=== PATIENT | female | born 2000 | race Hispanic/Latino ===

== ENCOUNTER 2022-05-20 03:06 | Observation (INO) | payer BC ==
[2022-05-20] MEDS ORDERED: Morphine 4 MG/ML VIAL ONE (03:26)
[2022-05-20 03:38] LABS: #Monocytes 0.4 10x3/uL (0.0-1.1); #Neutrophils 11.8 10x3/uL (1.5-8.4); %Basophils 0.2 % (0.0-2.0); %Eosinophils 0.2 % (0.0-6.0); %Monocytes 2.9 % (0.0-10.0); %Neutrophils 93.1 % (40.0-75.0); Hemoglobin 10.3 g/dL (12.0-15.5); Mean Corpuscular HGB CONC 33.6 g/dL (32.0-36.0); Mean Corpuscular Hemoglobin 29.2 pg (27.0-33.0); Mean Platelet Volume 10.4 fl (7.4-10.4); Platelet Count 193 10x3/uL (150-450); RBC Distribution Width 14.1 % (11.5-14.5); Red Blood Cell (RBC) Count 3.53 10x6/uL (3.90-5.03); White Blood Cell (WBC) Count 12.6 10x3/uL (3.5-10.5)
[2022-05-20 03:53] LABS: ALT (SGPT) 14 U/L (8-55); AST (SGOT) 16 U/L (5-34); Albumin 3.8 g/dL (3.5-5.0); Alkaline Phosphatase 55 U/L (40-100); Anion Gap 12 mmol/L (10-20); BUN (Urea Nitrogen) 13 mg/dL (7.0-18.7); Bilirubin, Total 3.8 mg/dL (0.2-1.2); Calc. Creatinine Clearance 0 mL/min (70-130); Carbon Dioxide 24 mmol/L (22-29); Chloride 106 mmol/L (98-107); Estimated GFR 127; Globulin 3.2 g/dL (2.4-3.5); Glucose 123 mg/dL (70-105); Magnesium 1.6 mg/dL (1.7-2.2); Potassium 3.7 mmol/L (3.5-5.1); Sodium 138 mmol/L (136-145)
[2022-05-20 05:52] LABS: Hemoglobin 10.3 g/dL (12.0-15.5)
[2022-05-20] MEDS ORDERED: Acetaminophen 325 MG TAB ONE (06:11)
[2022-05-20] MEDS ORDERED: cefTRIAXone\\ROCEPHIN 1 GM VIAL ONE (06:16)
[2022-05-20] MEDS ORDERED: metroNIDAZOLE 500 MG/100 ML BAG ONE (06:17)
[2022-05-20] MEDS ORDERED: Misoprostol 200 MCG TAB ONE ×2 (06:18→08:44)
[2022-05-20] MEDS ORDERED: Misoprostol 200 MCG TAB PO PRN (06:38)
[2022-05-20 07:01] LABS: SARS-CoV-2 NAA Rapid Test Not Detected (NotDetected)
[2022-05-20 07:27] LABS: Bilirubin Neg (Negative); Blood, Urine 250 (Negative); Glucose, Urine (Dipstick) Normal (Negative); Ketone, Urine Negative (Negative); Leukocyte Negative (Negative); Nitrite Negative (Negative); Protein, Urine (Dipstick) Negative (Neg-Trace); Urobilinogen Normal mg/dL (Less than 2)
[2022-05-20] MEDS ORDERED: Fentanyl 100 MCG/2 ML VIAL ONE ×2 (07:27→09:28)
[2022-05-20 07:32] LABS: Clarity Hazy (Clear)
[2022-05-20 07:57] LABS: Bacteria/HPF None Seen HPF (None Seen); Squamous Epithelial 0-3 HPF (0-3)
[2022-05-20 07:58] LABS: WBC/HPF 0-3 HPF (0-3)
[2022-05-20] MEDS ORDERED: Methylergonovine 0.2 MG/ML VIAL ONE (08:44)
[2022-05-20] MEDS ORDERED: Dexmedetomidine 200 MCG/2 ML VIAL ONE (09:15)
[2022-05-20] MEDS ORDERED: PROPOFOL 20 ML ONE (09:28)
[2022-05-20] MEDS ORDERED: Dexamethasone 20 MG/5 ML VIAL ONE (09:28)
[2022-05-20] MEDS ORDERED: Ondansetron PF 4 MG/2 ML Vial ONE (09:28)
[2022-05-20] MEDS ORDERED: Naloxone HCl 0.4 mg/ml Vial IVP PRN (10:02)
[2022-05-20] MEDS ORDERED: Ibuprofen 200 MG TAB PO PRN (10:22)
[2022-05-20] MEDS ORDERED: Acetaminophen 325 MG TAB PO PRN (10:22)
[2022-05-20 11:16] LABS: Lactic Acid 0.8 mmol/L (0.5-2.2)
[2022-05-20] MEDS ORDERED: Iopamidol 370 76% 100 ML VIAL ONE (14:37)
[2022-05-20] MEDS ORDERED: Piperacillin/Tazobactam 3.375 GM in Sodium Chloride 0.9% 100 ML IVPB SCH (16:00)
[2022-05-20] MEDS: HYDROcodone/Acetaminophen 5/325 mg Tablet PO PRN (16:22)
[2022-05-20] MEDS: Lactated Ringer's 1,000 ML IV SCH ×2 (16:23→19:33)
[2022-05-20 19:18] LABS: Hemoglobin 9.3 g/dL (12.0-15.5); Manual Diff?? YES; Mean Corpuscular HGB CONC 33.8 g/dL (32.0-36.0); Mean Corpuscular Hemoglobin 29.8 pg (27.0-33.0); Mean Corpuscular Volume 88.1 fl (81.6-98.3); Mean Platelet Volume 11.3 fl (7.4-10.4); Platelet Count 167 10x3/uL (150-450); RBC Distribution Width 14.5 % (11.5-14.5); Red Blood Cell (RBC) Count 3.12 10x6/uL (3.90-5.03); White Blood Cell (WBC) Count 15.9 10x3/uL (3.5-10.5)
[2022-05-20 19:19] LABS: MDiff Complete? YES
[2022-05-20 19:53] LABS: Band 23 % (5-11); Lymphocytes 2 % (28-48); Neutrophil 75 % (31-61)
[2022-05-20 19:54] LABS: Platelet Morphology Comment Appears Adequate
[2022-05-20 19:55] LABS: Dohle Bodies SLIGHT; Toxic Granulation SLIGHT; Vacuoles SLIGHT
[2022-05-20] MEDS: Piperacillin/Tazobactam 3.375 GM in Sodium Chloride 0.9% 100 ML IVPB SCH (20:45)
[2022-05-20 22:14] VITALS: BMI 27.2
[2022-05-21] MEDS: Lactated Ringer's 1,000 ML IV SCH (04:00)
[2022-05-21] MEDS: Piperacillin/Tazobactam 3.375 GM in Sodium Chloride 0.9% 100 ML IVPB SCH (04:56)
[2022-05-21] MEDS: HYDROcodone/Acetaminophen 5/325 mg Tablet PO PRN (04:56)
[2022-05-21 08:46] LABS: #Monocytes 0.4 10x3/uL (0.0-1.1); #Neutrophils 11.6 10x3/uL (1.5-8.4); %Basophils 0.2 % (0.0-2.0); %Eosinophils 0.1 % (0.0-6.0); %Lymphocytes 6.1 % (18.0-47.0); %Monocytes 3.2 % (0.0-10.0); Hemoglobin 8.5 g/dL (12.0-15.5); Mean Corpuscular HGB CONC 32.9 g/dL (32.0-36.0); Mean Corpuscular Hemoglobin 29.1 pg (27.0-33.0); Mean Corpuscular Volume 88.4 fl (81.6-98.3); Mean Platelet Volume 10.9 fl (7.4-10.4); Platelet Count 167 10x3/uL (150-450); RBC Distribution Width 14.6 % (11.5-14.5); Red Blood Cell (RBC) Count 2.92 10x6/uL (3.90-5.03); White Blood Cell (WBC) Count 12.8 10x3/uL (3.5-10.5)
[2022-05-21 08:58] LABS: ALT (SGPT) 15 U/L (8-55); AST (SGOT) 15 U/L (5-34); Albumin 3.3 g/dL (3.5-5.0); Alkaline Phosphatase 49 U/L (40-100); Anion Gap 11 mmol/L (10-20); BUN (Urea Nitrogen) 9 mg/dL (7.0-18.7); Bilirubin, Total 0.6 mg/dL (0.2-1.2); Calc. Creatinine Clearance 165 mL/min (70-130); Calcium 8.8 mg/dL (7.8-10.44); Carbon Dioxide 24 mmol/L (22-29); Chloride 110 mmol/L (98-107); Estimated GFR 128; Globulin 2.8 g/dL (2.4-3.5); Glucose 170 mg/dL (70-105); Potassium 3.9 mmol/L (3.5-5.1); Protein, Total 6.1 g/dL (6.0-8.3); Sodium 141 mmol/L (136-145)
[2022-05-21 12:23] VITALS: BP 108/51; TEMP 98.8
== END 2022-05-21 13:00 | disposition home or self-care (01) ==
LOC: CSHERS 03:06 → CSHPP 14:57
PROVIDERS: ADMIT Obstetrics & Gynecology; ATTEND Obstetrics & Gynecology
PROC: 10D17ZZ Extraction of Products of Conception, Retained, Via Natural or Artificial Opening (ICD-10-PCS; principal; 2022-05-20)
DX: O03.4 Incomplete spontaneous abortion without complication (principal); Z20.822 Contact with and (suspected) exposure to COVID-19
CPT/HCPCS: 36415; 71275; 76856; 80053; 81003; 81015; 83605; 83735; 84702; 85025; 86850; 86900; 86901; 87040; 88305; 96365; 96368; 96375; J0696; J1100; J2210; J2270; J2405; J2543; J2704; J3010; J3490; J7120; Q9967